=== PATIENT | female | born 1990 | race Caucasian/White ===

== ENCOUNTER 2021-05-26 15:34 | Emergency (ER) | payer OTHER ==
[2021-05-26] MEDS ORDERED: Sodium Chloride 0.9% 2.5 ML Syringe FLUSH PRN (16:12)
[2021-05-26] MEDS ORDERED: Sodium Chloride 0.9% 10 ML Syringe FLUSH PRN (16:12)
[2021-05-26] MEDS ORDERED: Sodium Chloride 0.9% 1,000 ML IV ONE (17:06)
[2021-05-26 17:07] LABS: CARBON DIOXIDE,CO2 21.5 mmol/L (21.0-32.0); POTASSIUM,K 4.2 mmol/L (3.5-5.1)
--- NOTE | 2021-05-26 18:13 | EDM.PDOC ---
ED HPI GENERAL MEDICAL PROBLEM - General Chief Complaint: General Stated Complaint: LOW BLOOD PLATELET Time Seen by Provider: 05/26/21 16:12 - History of Present Illness INITIAL COMMENTS - FREE TEXT/NARRATIVE: HISTORY AND PHYSICAL: History of present illness: This is a 30-year-old female with a history significant for gastric bypass no history of hypertension, diabetes, liver, lung, kidney problems who presents to the ER today secondary to concern for potential low platelet count. Patient reports that she has noticed spots on both lower extremities that developed a couple days ago. She reports that she spoke to her primary care physician over it and he told her that may be related to low platelet count or just a generalized rash. She reports that today she was in the shower and had blood- tinged nasal secretions that were concerning and also had some bleeding when she was brushing her teeth. She reports she took a picture of the bleeding and sent it to her doctor. Secondary to the concern of petechiae to her lower extremities and bleeding gums her doctor recommended that she come to the [facility] for evaluation for possible ITP evaluation her platelet dysfunction. In the ED, the patient has no other complaints other than generalized fatigue over the last several month. Patient denies any recent fevers, shakes, chills, nausea, vomiting, diarrhea, dysuria, frequency, urgency. Patient denies any new me dications. Patient denies any [id number] medications or herbal medicines. Review of systems: As per history of present illness and below otherwise all systems reviewed and negative. Past medical history: As per history of present illness and as reviewed below otherwise noncontributory. Surgical history: As per history of present illness and as reviewed below otherwise noncontributor y. Social history: No reported history of drug abuse. Family history: As per history of present illness and as reviewed below otherwise noncontributory. Physical exam: This patient was seen and evaluated during the 2019 SARS-CoV-2 novel coronavirus pandemic period. Community viral transmission is ongoing at time of this encounter and the emergency department is operating under pandemic response procedures. Constitutional: Patient is oriented to person, place, and time. Appears well- developed and well-nourished. No distress. HEENT: Moist mucous membranes Head: Normocephalic and atraumatic Eyes: Right eye exhibits no discharge. Left eye exhibits no discharge. No scleral icterus Neck: Normal range of motion. No tracheal deviation present. Cardiovascular: Normal rate and regular rhythm. Pulmonary: Effort normal, no respiratory distress. Abdominal: No distention Musculoskeletal: Normal range of motion Neurologic: Alert and oriented to person, place and time. Skin: [place], warm and dry. Psychiatric: Normal mood and affect. Behavior is normal. Judgment and thought content normal. Nursing note and vital signs have been reviewed Patient's ER physical exam is significant for small petechial-like rash throughout her bilateral lower extremities that are sparse. Patient's oropharynx is clear without any active bleeding or gingival disease. Patient's nasal septum was clear without any evidence of blood within her nasal septum. Diagnostics: [] Therapeutics: [] Assessment and plan: This is a 30-year-old female who presents ER today secondary to concern of platelet dysfunction secondary to petechiae noted on her lower extremities as well as bleeding from her gums and nose. Patient's labs in the ER are all within normal limits. Patient with a normal CBC and CMP. Patient's urinalysis was significant for positive WBCs in her urine as well as specific gravity of 1.030. Patient was given 1 L of NSS in the ED to assist with dehydration and will get started on Omnicef 300 mg twice a day for 3 days. Patient will be instructed to follow-up with her primary care physician in the next 1 to 2 days for reevaluation and so that he can see the rash and refer as appropriate. Reassessment at the time of disposition demonstrates that the patient is in no acute distress. The patient has remained stable throughout the entire ED visit and is without objective evidence for acute process requiring urgent intervention or hospitalization. The patient is stable for discharge, counseling is provided as documented above, discussed symptomatic treatment and specific conditions for return. I have spoken with the patient/caregiver and discussed todays findings, in addition to providing specific details for the plan of care. Questions are answered and there is agreement with the plan. Definitive disposition and diagnosis as appropriate pending reevaluation and review of above. general Pain Score (Numeric/FACES): 5 - Related Data Allergies Allergy/AdvReac Type Severity Reaction Status Date / Time acetazolamide Allergy Tachycardia Verified 05/26/21 16:48 promethazine Allergy Other Verified 05/26/21 16:50 Home Meds: Home Meds Baclofen 10 mg PO DAILY 05/26/21 [History] Cefdinir [Omnicef] 300 mg PO BID #10 cap 05/26/21 [Rx] Esomeprazole Magnesium [Nexium] 40 mg PO DAILY 05/26/21 [History] Melatonin 10 mg PO DAILY 05/26/21 [History] Spironolactone [Aldactone] 25 mg PO BID 05/26/21 [History] Temazepam 30 mg PO DAILY 05/26/21 [History] Topiramate [Topamax] 50 mg PO BID 05/26/21 [History] Vilazodone HCl [Viibryd] 40 mg PO DAILY 05/26/21 [History] methocarbamoL [Methocarbamol] 750 mg PO DAILY 05/26/21 [History] ondansetron HCL [Zofran] 4 mg PO ASDIRECTED 05/26/21 [History] traMADol [Ultram] 50 mg PO DAILY 05/26/21 [History] Past Medical History Other [employer] History: Psychiatric History: Reports: Anxiety, Depression - Infectious Disease History Infectious Disease History: Reports: Chicken Pox - Past Surgical History GI Surgical History: Reports: Bariatric Procedure, Cholecystectomy Other Endocrine Surgeries/Procedures: Pituitary tumor Social & Family History - Tobacco Use Tobacco Use Status *Q: Never Tobacco User - Recreational Drug Use Recreational Drug Use: No ED ROS GENERAL - Review of Systems Review Of Systems: See Below ED EXAM, GENERAL - Physical Exam Exam: See Below Course - Vital Signs Last Recorded V/S: Last Vital Signs Temp 97.7 F 05/26/21 16:04 Pulse 98 05/26/21 16:04 Resp BP 127/83 05/26/21 16:04 Pulse Ox 98 05/26/21 16:04 - Orders/Labs/Meds Orders: Active Orders 24 hr Category Date Time Status Saline Lock Insert [OM.PC] Stat Oth 05/26/21 16:12 Ordered Labs: Laboratory Tests 05/26/21 05/26/21 05/26/21 Range/Units 16:38 16:38 17:09 WBC 10.10 (4.0-11.0) K/uL RBC 4.51 (4.30-5.90) M/uL Hgb 14.5 (12.0-16.0) g/dL Hct 42.3 (36.0-46.0) % MCV 93.8 (80.0-98.0) fL MCH 32.2 H (27.0-32.0) pg MCHC 34.3 (31.0-37.0) g/dL RDW Std Deviation 45.7 (28.0-62.0) fl RDW Coeff of Zohra 13 (11.0-15.0) % Plt Count 276 (150-400) K/uL MPV 10.50 (7.40-12.00) fL Neut % (Auto) 76.1 (48.0-80.0) % Lymph % (Auto) 13.6 L (16.0-40.0) % Martin % (Auto) 8.3 (0.0-15.0) % Eos % (Auto) 1.6 (0.0-7.0) % Baso % (Auto) 0.4 (0.0-1.5) % Neut # (Auto) 7.7 H (1.4-5.7) K/uL Lymph # (Auto) 1.4 (0.6-2.4) K/uL Martin # (Auto) 0.8 (0.0-0.8) K/uL Eos # (Auto) 0.2 (0.0-0.7) K/uL Baso # (Auto) 0.0 (0.0-0.1) K/uL Nucleated RBC % 0.0 /100WBC Nucleated RBCs # 0 K/uL Sodium 143 (136-145) mmol/L Potassium 4.2 (3.5-5.1) mmol/L Chloride 107 (98-107) mmol/L Carbon Dioxide 21.5 (21.0-32.0) mmol/L BUN 15 (7.0-18.0) mg/dL Creatinine 1.1 H (0.6-1.0) mg/dL Est Cr Clr Drug Dosing 52.74 mL/min Estimated GFR (MDRD) 57.6 ml/min Glucose 98 (74-106) mg/dL Calcium 8.9 (8.5-10.1) mg/dL Total Bilirubin 0.3 (0.2-1.0) mg/dL AST 15 (15-37) IU/L ALT 21 (14-63) IU/L Alkaline Phosphatase 53 (46-116) U/L Total Protein 7.1 (6.4-8.2) g/dL Albumin 4.0 (3.4-5.0) g/dL Globulin 3.1 (2.6-4.0) g/dL Albumin/Globulin Ratio 1.3 (0.9-1.6) Urine Color YELLOW Urine Appearance SLT CLOUDY Urine pH 6.0 (5.0-8.0) Ur Specific [place] >= 1.030 (1.001-1.035) Urine Protein NEGATIVE (NEGATIVE) mg/dL Urine Glucose (UA) NEGATIVE (NEGATIVE) mg/dL Urine Ketones NEGATIVE (NEGATIVE) mg/dL Urine Occult Blood NEGATIVE (NEGATIVE) Urine Nitrite NEGATIVE (NEGATIVE) Urine Bilirubin NEGATIVE (NEGATIVE) Urine Urobilinogen 0.2 (<2.0) EU/dL Ur Leukocyte Esterase SMALL H (NEGATIVE) Urine RBC 0-2 (0-2/HPF) Urine WBC 5-8 (0-5/HPF) Ur Epithelial Cells FEW (NONE-FEW) Urine Bacteria 1+ H (NEGATIVE) Urine HCG, Qual (NEGATIVE) 05/26/21 Range/Units 17:09 WBC (4.0-11.0) K/uL RBC (4.30-5.90) M/uL Hgb (12.0-16.0) g/dL Hct (36.0-46.0) % MCV (80.0-98.0) fL MCH (27.0-32.0) pg MCHC (31.0-37.0) g/dL RDW Std Deviation (28.0-62.0) fl RDW Coeff of Zohra (11.0-15.0) % Plt Count (150-400) K/uL MPV (7.40-12.00) fL Neut % (Auto) (48.0-80.0) % Lymph % (Auto) (16.0-40.0) % Martin % (Auto) (0.0-15.0) % Eos % (Auto) (0.0-7.0) % Baso % (Auto) (0.0-1.5) % Neut # (Auto) (1.4-5.7) K/uL Lymph # (Auto) (0.6-2.4) K/uL Martin # (Auto) (0.0-0.8) K/uL Eos # (Auto) (0.0-0.7) K/uL Baso # (Auto) (0.0-0.1) K/uL Nucleated RBC % /100WBC Nucleated RBCs # K/uL Sodium (136-145) mmol/L Potassium (3.5-5.1) mmol/L Chloride (98-107) mmol/L Carbon Dioxide (21.0-32.0) mmol/L BUN (7.0-18.0) mg/dL Creatinine (0.6-1.0) mg/dL Est Cr Clr Drug Dosing mL/min Estimated GFR (MDRD) ml/min Glucose (74-106) mg/dL Calcium (8.5-10.1) mg/dL Total Bilirubin (0.2-1.0) mg/dL AST (15-37) IU/L ALT (14-63) IU/L Alkaline Phosphatase (46-116) U/L Total Protein (6.4-8.2) g/dL Albumin (3.4-5.0) g/dL Globulin (2.6-4.0) g/dL Albumin/Globulin Ratio (0.9-1.6) Urine Color Urine Appearance Urine pH (5.0-8.0) Ur Specific [place] (1.001-1.035) Urine Protein (NEGATIVE) mg/dL Urine Glucose (UA) (NEGATIVE) mg/dL Urine Ketones (NEGATIVE) mg/dL Urine Occult Blood (NEGATIVE) Urine Nitrite (NEGATIVE) Urine Bilirubin (NEGATIVE) Urine Urobilinogen (<2.0) EU/dL Ur Leukocyte Esterase (NEGATIVE) Urine RBC (0-2/HPF) Urine WBC (0-5/HPF) Ur Epithelial Cells (NONE-FEW) Urine Bacteria (NEGATIVE) Urine HCG, Qual NEGATIVE (NEGATIVE) Meds: Medications Discontinued Medications Generic Name Dose Route Start Last Admin Trade Name Freq PRN Reason Stop Dose Admin Cefdinir 300 mg 05/26/21 18:14 05/26/21 18:31 Cefdinir 300 Mg Cap PO 05/26/21 18:15 300 mg ONETIME ONE Administration Sodium Chloride 1,000 mls @ 999 mls/hr 05/26/21 17:06 05/26/21 17:17 Normal Saline IV 05/26/21 18:06 999 mls/hr .Bolus ONE Administration Sodium Chloride 10 ml 05/26/21 16:12 05/26/21 17:17 Sodium Chloride 0.9% 10 Ml Syringe FLUSH 10 ml ASDIRECTED PRN Administration Keep Vein Open Sodium Chloride 2.5 ml 05/26/21 16:12 05/26/21 17:17 Sodium Chloride 0.9% 2.5 Ml Syringe FLUSH 2.5 ml ASDIRECTED PRN Administration Keep Vein Open Departure - Departure Time of Disposition: 18:11 Disposition: Home, Self-Care 01 Condition: Good Clinical Impression: UTI, Urinary tract infectious disease, Dehydration, Rash - Discharge Information Prescriptions: Cefdinir [Omnicef] 300 mg PO BID #10 cap Instructions: Rash, Adult, Urinary Tract Infection, Adult, [id number], Dehydration, Adult, [id number] Referrals: PCP,None [Primary Care Provider] - Forms: ED Department Discharge Additional Instructions: Your seen and evaluated in the ER today secondary to a concerning rash and bleeding from your mouth and nose. Your blood tests today are all within normal limits with a normal platelet count and hemoglobin. Your urine did reveal an early urinary tract infection with dehydration. You have been given 1 L of IV fluids here in the ED and will be discharged home with a prescription for an antibiotic for urinary tract infection. Please make an appointment to see your doctor the next 1 to 2 days to be reevaluated to that he can examine your rash and refer you as needed. The following information is given to patients seen in the emergency department who are being discharged to home. This information is to outline your options for follow-up care. We provide all patients seen in our emergency department with a follow-up referral. The need for follow-up, as well as the timing and circumstances, are variable depending upon the specifics of your emergency department visit. If you don't have a primary care physician on staff, we will provide you with a referral. We always advise you to contact your personal physician following an emergency department visit to inform them of the circumstance of the visit and for follow-up with them and/or the need for any referrals to a consulting specialist. The emergency department will also refer you to a specialist when appropriate. This referral assures that you have the opportunity for follow-up care with a specialist. All of these measure are taken in an effort to provide you with optimal care, which includes your follow-up. Under all circumstances we always encourage you to contact your private physician who remains a resource for coordinating your care. When calling for follow-up care, please make the office aware that this follow-up is from your recent emergency room visit. If for any reason you are refused follow-up, please contact the [facility] Emergency Department at and asked to speak to the emergency department charge nurse. [facility] [address] [place] [id number] [facility] [address] [place] [id number] Sepsis Event Note (ED) - Evaluation Sepsis Screening Result: No Definite Risk - My Orders Last 24 Hours: My Active Orders 05/26/21 16:12 Saline Lock Insert [OM.PC] Stat - Assessment/Plan Last 24 Hours: My Active Orders 05/26/21 16:12 Saline Lock Insert [OM.PC] Stat
[2021-05-26] MEDS ORDERED: Cefdinir 300 MG Cap PO ONE (18:14)
== END 2021-05-26 16:37 | disposition home or self-care (01) ==
LOC: MW.ED 15:34
DX: N39.0 Urinary tract infection, site not specified (principal); E86.0 Dehydration; R21 Rash and other nonspecific skin eruption; Z88.8 Allergy status to other drugs, medicaments and biological substances; Z90.49 Acquired absence of other specified parts of digestive tract
CPT/HCPCS: 36415; 80053; 81001; 81025; 85025; 99284; A9270; J7030; 99283

== ENCOUNTER 2022-02-03 12:04 | Emergency (ER) | payer OTHER ==
[2022-02-03] MEDS ORDERED: Sodium Chloride 0.9% 1,000 ML IV ONE (12:21)
[2022-02-03] MEDS ORDERED: Atropine/Diphenoxylate 0.025-2.5 MG Tab PO ONE ×2 (12:23→12:45)
[2022-02-03 12:55] LABS: BLOOD UREA NITROGEN,BUN 10 mg/dL (7.0-18.0); CARBON DIOXIDE,CO2 22.8 mmol/L (21.0-32.0); CHLORIDE,CL 106 mmol/L (98-107); GLUCOSE RANDOM 93 mg/dL (74-106); POTASSIUM,K 3.6 mmol/L (3.5-5.1); SODIUM,NA 141 mmol/L (136-145)
== END 2022-02-03 13:47 | disposition home or self-care (01) ==
LOC: MW.ED 12:04
DX: R19.7 Diarrhea, unspecified (principal); Z79.899 Other long term (current) drug therapy; Z91.013 Allergy to seafood; Z88.8 Allergy status to other drugs, medicaments and biological substances
CPT/HCPCS: 36415; 80053; 83735; 85025; 87045; 87046; 87328; 87329; 87449; 87899; 99284; A9270; J7030; 99282